=== PATIENT | female | born 1955 | race Caucasian/White ===

== ENCOUNTER → 2016-10-06 | Day surgery (SDC) | payer BC ==
[~2016-10-06] MED LIST: ESTR2TAB PO; LACTATED RINGER'S 1000 ML INJ 1,000 ML ONE; PROPOFOL 500 MG/50 ML BTL IV ONE
--- NOTE | 2016-10-06 13:57 | GIPROC ---
[facility] [address] [facility], [address] COLONOSCOPY PROCEDURE REPORT EXAM DATE: 10/06/2016 PATIENT NAME: Sheron Moody MR #: [id number] BIRTHDATE: 1955 ENDOSCOPIST: Edson Mendoza MD ORDER #: [id number] CHILD CAREGIVER: Lynda Howell RN STATUS: outpatient INDICATIONS: The patient is a 61 yr old female here for a colonoscopy due to an abnormal PET PROCEDURE PERFORMED: Colonoscopy, screening MEDICATIONS: None, Per Anesthesia, None, and Per Anesthesia. PREP QUALITY: excellent ESTIMATED BLOOD LOSS: None CONSENT: The patient understands the risks and benefits of the procedure and understands that these risks include, but are not limited to: sedation, allergic reaction, infection, perforation and/or bleeding. Alternative means of evaluation and treatment include, among others: physical exam, x-rays, and/or surgical intervention. The patient elects to proceed with this endoscopic procedure. medical equipment was checked for proper function. Hand hygiene and appropriate measures for infection prevention was taken. After the risks, benefits and alternatives of the procedure were thoroughly explained, Informed consent was verified, confirmed and timeout was successfully executed by the treatment team. A digital exam revealed no abnormalities of the rectum The EC-[id number] ([id number] endoscope was introduced through the anus and advanced to the cecum, which was identified by both the appendix and ileocecal valve. The instrument was then slowly withdrawn as the colon was fully examined. COLON FINDINGS: The colonic mucosa appeared normal. Retroflexed views revealed no abnormalities The scope was then completely withdrawn from the patient and the procedure terminated. PROCEDURE WITHDRAWAL TIME:6.6minutes ADVERSE EVENTS: There were no complications. IMPRESSIONS: 1. The colonic mucosa appeared normal 2. Retroflexed views revealed no abnormalities 3. Revealed no abnormalities of the rectum RECOMMENDATIONS: 1. High fiber diet 2. Yearly hemoccult 3. Follow-up: GI Clinic PRN RECALL: Return 10 years Colonoscopy Edson Mendoza MD eSigned: Edson Mendoza MD 10/06/2016 1:57 PM cc: Philipp Monet M.D and Saeid Ball [facility] [place]
--- NOTE | 2016-10-06 14:00 | GIPROC ---
[facility] [address] [facility], [address] EGD PROCEDURE REPORT EXAM DATE: 10/06/2016 PATIENT NAME: Sheron Moody MR #: [id number] BIRTHDATE: 1955 ATTENDING: Edson Mendoza MD ORDER #: [id number] CREPING MACHINE OPERATOR HELPER: Lynda Howell RN STATUS: outpatient INDICATIONS: The patient is a 61 yr old female here for an EGD due to abnormal PET scan of the GI tract PROCEDURE PERFORMED: EGD w/ biopsy MEDICATIONS: None, Per Anesthesia, None, and Per Anesthesia. TOPICAL ANESTHETIC: CONSENT: The patient understands the risks and benefits of the procedure and understands that these risks include, but are not limited to: sedation, allergic reaction, infection, perforation and/or bleeding. Alternative means of evaluation and treatment include, among others: physical exam, x-rays, and/or surgical intervention. The patient elects to proceed with this endoscopic procedure. medical equipment was checked for proper function. Hand hygiene and appropriate measures for infection prevention was taken. After the risks, benefits and alternatives of the procedure were thoroughly explained, Informed consent was verified, confirmed and timeout was successfully executed by the treatment team. The patient was anesthetized with topical anesthesia and the EC-[id number] ([id number]) endoscope was introduced through the mouth and advanced to the second portion of the duodenum. Retroflexed views revealed no abnormalities The gastroscope was then slowly withdrawn and removed. ESOPHAGUS: The mucosa of the esophagus appeared normal. STOMACH: The mucosa of the stomach appeared normal. DUODENUM: The duodenal mucosa appeared normal. ADVERSE EVENTS: There were no complications. IMPRESSIONS: 1. The esophagus appeared normal 2. The mucosa of the stomach appeared normal 3. Normal duodenal mucosa 4. Retroflexed views revealed no abnormalities RECOMMENDATIONS: Follow-up: GI clinic PRN PATIENT CONDITION: stable DISPOSITION: Home REPEAT EXAM: Edson Mendoza MD eSigned: Edson Mendoza MD 10/06/2016 1:59 PM cc: Sergio Hanson M.D.
== END | disposition home or self-care (01) ==
LOC: ESDC 10:40
PROVIDERS: ATTEND Internal Medicine Gastroenterology
DX: R93.3 Abnormal findings on diagnostic imaging of other parts of digestive tract (principal)
CPT/HCPCS: 00740; 00810; 43235; 45378; J3010; J7120